=== PATIENT | female | born 1970 | race Caucasian/White ===

== ENCOUNTER 2022-01-02 08:19 | Outpatient (CLI) | payer BC, SELFPAY ==
[2022-01-12 16:06] LABS: Sex Hormone Binding Globulin 119 nmol/L (17-125); Testosterone, Free LC-MS/MS 3.3 pg/mL (0.6-3.8); Testosterone, LC-MS/MS 47 ng/dL (9-55)
== END 2022-01-02 08:20 | disposition home or self-care (01) ==
LOC: NFLDREF 08:20
PROVIDERS: Visit Provider Obstetrics & Gynecology
DX: E34.9 Endocrine disorder, unspecified (principal)
CPT/HCPCS: 84270; 84402; 84403

== ENCOUNTER 2022-08-04 18:00 | Emergency (ER) | payer BC, SELFPAY ==
[2022-08-04 18:19] VITALS: BP 120/81; PULSE 84; RESP 16; TEMP 36.9; O2SAT 93; BMI 24.3
--- NOTE | 2022-08-04 18:37 | CRLHL7_ITS ---
For Patients: As a result of the Century Cures Act, medical imaging exams and procedure reports are released immediately into your electronic medical record. You may view this report before your referring provider. If you have questions, please contact your health care provider. INDICATION: R ear/facial pain; hx sinusitis TECHNIQUE: CT sinus without contrast. COMPARISON: None. FINDINGS: Paranasal sinuses: Well developed and clear. No fluid or mucosal thickening. The ostiomeatal units are patent. The frontoethmoid and sphenoethmoid recesses are patent. The fovea ethmoidalis and orbital willoughby are intact. The nasal septum is midline and intact. The nasal turbinates are normal. Orbits and globes: Unremarkable. Visualized intracranial contents: Unremarkable. Soft tissues: Unremarkable. The mastoid air cells and middle and inner ears are unremarkable. IMPRESSION: Unremarkable CT of the sinuses. No evidence of sinusitis. Unremarkable right middle ear and mastoid air cells. Please note that all CT scans at this facility use dose modulation, iterative reconstruction, and/or weight-based dosing when appropriate to reduce radiation dose to as low as reasonably achievable. Dictated by Clint Mosquera MD @ 08/04/2022 7:16:25 PM (Electronically Signed)
--- NOTE | 2022-08-04 18:38 | ED.GENADULT ---
HPI - General Adult General Chief complaint: Ear/Nose/Throat Problem Stated complaint: Right ear and face pain Time Seen by Provider: 08/04/22 18:13 History of Present Illness HPI narrative: This 51-year-old female comes in reporting right ear pain and right facial pain that began last evening. She does have a history of recurrent sinusitis and did have a surgery to her sinuses about 15 years ago. She also reports a history of rheumatoid arthritis and is taking embrel. She states that she was on 14 days of antibiotic for sinus symptoms last month. She does report some nasal drainage but does not have any fever or cough. Related Data Home Medications Medication Instructions Recorded Confirmed Lactobacillus acidophilus 1 10 mg PO QDAY 01/17/22 01/17/22 billion cell capsule acetaminophen 325 mg tablet mg PO PRN 01/17/22 01/17/22 albuterol sulfate 90 mcg/actuation 2 inh inhalation Q6H PRN 01/17/22 01/17/22 breath activated powder inhaler estradiol 0.01% (0.1 mg/gram) 0.5 vaginal .Twice Weekly 01/17/22 01/17/22 vaginal cream estradiol 1 mg tablet 2 mg PO DAILY 01/17/22 01/17/22 etanercept 25 mg/0.5 mL mg subcut 01/17/22 01/17/22 subcutaneous solution (Enbrel) ibuprofen 400 mg tablet 400 mg PO Q8H PRN 01/17/22 01/17/22 krill oil 500 mg capsule mg PO DAILY 01/17/22 01/17/22 frammodmoboj-Ye-kcyh-minerals 18 tab PO DAILY 01/17/22 01/17/22 mg-0.4 mg tablet turmeric 400 mg capsule mg PO 01/17/22 01/17/22 Previous Rx's Medication Instructions Recorded testosterone 1 pump topical QAM #75 grams 01/19/22 progesterone micronized 200 mg 200 mg PO DAILY 12 days #12 caps 01/23/22 capsule estradiol 2 mg tablet 2 mg PO QDAY #60 tabs 06/02/22 ketorolac 10 mg tablet 10 mg PO Q8H 5 days #15 tabs 08/04/22 methylprednisolone 4 mg tablets in See Rx Instructions PO .COMPLEX 08/04/22 a dose pack (Medrol (Heraclio)) #21 ea Allergies Allergy/AdvReac Type Severity Reaction Status Date / Time amoxicillin Allergy Unknown Verified 01/17/22 09:41 cefuroxime Allergy Unknown Verified 01/17/22 09:41 Review of Systems Status of ROS: Reports: 10 or more systems reviewed and unremarkable except as noted in History and below Narrative: Constitutional: No fevers, no weight gain or loss. Eyes: No discharge. No vision changes. HENT: Right ear pain radiating into the right face. Cardiovascular: No chest pain, no palpitations. Respiratory: No shortness of breath, no wheezes, no cough. Gastrointestinal: No abdominal pain, no vomiting, no diarrhea. Genitourinary: No dysuria, no hematuria. Musculoskeletal: Normal range of motion. Skin: No rashes, no pruritis. Neurological: No dizziness, weakness, sensory change, speech change. Endo/Heme/Allergies: No bruising or bleeding. No polydipsia. Pysch: no suicidality, no anxiety, no insomnia. All other systems reviewed and are negative. [facility] Medical History (Updated 08/04/22 @ 20:01 by Sanju Muñoz MD) Disorder of paranasal sinus Low libido Menopausal symptoms Shoulder pain Surgical menopause Surgical History (Updated 12/26/21 @ 09:32 by Virginia Koehler) Status post bilateral salpingo-oophorectomy (BSO) Social History Smoking Status: Former smoker Do you use any of these nicotine containing products: None Non-prescribed substance use: denies use Exam Narrative: Exam Narrative: Constitutional: Well-developed, well-nourished, no acute distress. HEENT: Normocephalic, atraumatic. Tympanic membranes appear normal bilaterally. Oropharynx has mild erythema without any exudate or tonsillar hypertrophy. Neck: Normal range of motion. Nontender. Supple. Heart: Regular. No murmurs. Normal rate. Intact distal pulses. Lungs: Clear to auscultation. No chest discomfort. No wheezes, rhonchi, or rales. Abdomen: Normal bowel sounds. Nontender. No rebound tenderness. Genitalia: Deferred. Back: No midline tenderness. Normal range of motion. Extremities: Normal range of motion. No injury. Skin: Intact. No rash. Warm. No erythema or pallor. Neurologic: No altered sensation. No weakness. Alert and oriented. Psychiatric: No suicidality. No anxiety or depression. No insomnia. Nursing notes and vitals signs are reviewed. Const: Vital Signs, click to edit/add: Vital Signs - 24 hr 08/04/22 18:19 Temperature 98.4 F Pulse Rate [Pulse Oximeter] 84 Respiratory Rate 16 Blood Pressure [Ri ght Upper Arm] 120/81 Pulse Oximetry 93 Oxygen Delivery Me thod Room Air Course Vital Signs Vital signs: Initial Vital Signs Temperature 98.4 F 08/04/22 18:19 Temperature Source Temporal Artery Scan 08/04/22 18:19 Pulse Rate 84 08/04/22 18:19 Pulse Rhythm 08/04/22 18:19 Pulse Strength 3+ Normal 08/04/22 18:19 Respiratory Rate 16 08/04/22 18:19 Blood Pressure 120/81 08/04/22 18:19 Blood Pressure Mean 94 08/04/22 18:19 Blood Pressure Position Sitting 08/04/22 18:19 Pulse Oximetry 93 08/04/22 18:19 Oxygen Delivery Method 08/04/22 18:19 Vital Signs Temperature 98.4 F 08/04/22 18:19 Pulse Rate 84 08/04/22 18:19 Respiratory Rate 16 08/04/22 18:19 Blood Pressure 120/81 08/04/22 18:19 Pulse Oximetry 93 08/04/22 18:19 Oxygen Delivery Method 08/04/22 18:19 Temperature 98.4 F 08/04/22 18:19 Pulse Rate 84 08/04/22 18:19 Respiratory Rate 16 08/04/22 18:19 Blood Pressure 120/81 08/04/22 18:19 Pulse Oximetry 93 08/04/22 18:19 Oxygen Delivery Method 08/04/22 18:19 Medical Decision Making [facility] Narrative Medical decision making narrative: This patient comes in with pain in her right ear radiating into her right face. She wonders if this might be recurrent sinusitis. She does also reports some postnasal drainage. A CT scan of the sinuses is obtained and shows no evidence of sinusitis. It is better her for this patient not to be placed on antibiotic treatment. I did describe other possible causes for her pain including eustachian tube dysfunction and dental pain. The patient did receive a prescription for Medrol Dosepak and Toradol. I advised her to follow-up with [facility] as she does have a remote history of sinus surgery and states that these sinus symptoms have been recurring more regularly in the past months. Imaging Data CT Sinuses: Radiologist's impression: Unremarkable CT of the sinuses. No evidence of sinusitis. Unremarkable right middle ear and mastoid air cells. Discharge Plan Discharge Clinical Impression: Acute facial pain, Otalgia of right ear Patient Disposition: Home, Self-Care Condition: Stable Additional Instructions: Take medication as needed and directed. Recommend using Jamilah and Prilosec also as needed and directed. Follow up with MD as needed. Consider consult with [facility]. An appointment with Dr. Barragan can be obtained by calling [phone]. Prescriptions: New ketorolac 10 mg tablet 10 mg PO Q8H 5 Days Qty: 15 0RF methylprednisolone [Medrol (Heraclio)] 4 mg tablets,dose pack See Rx Instructions .ROUTE .COMPLEX Qty: 21 0RF Rx Instructions: orally per package directions No Action Enbrel 25 mg/0.5 mL solution subcut acetaminophen 325 mg tablet PO PRN Rx Instructions: NO MORE THAN 4000 MG/DAY turmeric 400 mg capsule PO mwjucfuejnuc-Pk-wlub-minerals 18-0.4 mg tablet PO DAILY Lactobacillus acidophilus 1 billion cell capsule 10 mg PO QDAY krill oil 500 mg capsule PO DAILY ibuprofen 400 mg tablet 400 mg PO Q8H PRN estradiol 0.01 % (0.1 mg/gram) cream 0.5 vaginal .Twice Weekly Rx Instructions: Use nightly for 2 weeks, then twice weekly. May apply with fingertip or applicator. estradiol 1 mg tablet 2 mg PO DAILY albuterol sulfate 90 mcg/actuation aerosol powdr breath activated 2 inh inhalation Q6H PRN testosterone 20.25 mg/1.25 gram (1.62 %) gel in metered-dose pump 1 pump topical QAM Qty: 75 0RF Rx Instructions: apply 1 pump amount over max area of ONE upper arm and shoulder progesterone micronized 200 mg capsule 200 mg PO DAILY 12 Days Qty: 12 12RF estradiol 2 mg tablet 2 mg PO QDAY Qty: 60 3RF Follow Up/Referrals: Provider,Not a Local [Primary Care Provider] - Stand Alone Forms: [employer] Info Instructions
[2022-08-04 20:07] VITALS: BP 126/74; PULSE 72; RESP 16; TEMP 36.7
== END 2022-08-04 20:08 | disposition home or self-care (01) ==
PROVIDERS: Emergency Provider Emergency Medicine Emergency Medical Services
DX: H92.01 Otalgia, right ear (principal); G50.1 Atypical facial pain
CPT/HCPCS: 70486; 99283; 99284

== ENCOUNTER 2022-12-18 09:06 | Outpatient (CLI) | payer BC, SELFPAY | END 2022-12-18 09:07 | disposition home or self-care (01) | PROVIDERS: Visit Provider Obstetrics & Gynecology | DX: Z01.419 Encounter for gynecological examination (general) (routine) without abnormal findings (principal); R63.5 Abnormal weight gain; R68.82 Decreased libido; E34.9 Endocrine disorder, unspecified; N95.1 Menopausal and female climacteric states; Z13.1 Encounter for screening for diabetes mellitus; Z13.6 Encounter for screening for cardiovascular disorders; Z79.899 Other long term (current) drug therapy | CPT/HCPCS: 80061; 84403; 84443 ==

== ENCOUNTER 2023-08-20 11:43 | Emergency (ER) | payer BC, SELFPAY ==
[2023-08-20 11:57] VITALS: BP 108/72; PULSE 87; RESP 18; TEMP 36.4; O2SAT 94; BMI 25.2
== END 2023-08-20 13:31 | disposition left against medical advice (07) ==
PROVIDERS: Emergency Provider Family Medicine
DX: Z53.21 Procedure and treatment not carried out due to patient leaving prior to being seen by health care provider (principal)

== ENCOUNTER 2024-01-28 16:27 | Outpatient (CLI) | payer OTHER, SELFPAY ==
--- NOTE | 2024-01-28 16:45 | CRLHL7_ITS ---
For Patients: As a result of the Century Cures Act, medical imaging exams and procedure reports are released immediately into your electronic medical record. You may view this report before your referring provider. If you have questions, please contact your health care provider. INDICATION: Postmenopausal bleeding COMPARISON: none TECHNIQUE: 2D brooks scale and color Doppler images were acquired of the pelvis using a transabdominal and transvaginal approach. FINDINGS: Sonographic images demonstrate a normal size and smooth outer contour of the uterus. Uterus measures 7.5 cm in length by 3.8 cm in AP diameter by 3.8 cm in transverse dimension. The myometrium has a normal uniform echotexture. The endometrial lining appears normal and measures 4.9 mm in composite thickness. The ovaries are absent. There are no suspicious fluid collections within the cul-de-sac. IMPRESSION: Endometrial thickness 4.9 millimeters. No endometrial fluid or uterine fibroid. Dictated by Bennie Palumbo MD @ 01/29/2024 7:05:35 AM (Electronically Signed)
== END 2024-01-28 16:28 | disposition home or self-care (01) ==
LOC: US 16:28
PROVIDERS: PCP Family Medicine; Visit Provider Obstetrics & Gynecology
DX: N95.0 Postmenopausal bleeding (principal); R93.89 Abnormal findings on diagnostic imaging of other specified body structures
CPT/HCPCS: 76830; 76856